=== PATIENT | female | born 1990 | race American Indian/Alaskan Native ===

== ENCOUNTER 2017-08-16 16:54 | Emergency (ER) | payer MEDICARE, OTHER ==
[2017-08-16 17:04] VITALS: BMI 27.4
[2017-08-16 17:06] VITALS: BP 131/84; PULSE 84; RESP 18; TEMP 98.6; O2SAT 97
[2017-08-16] MEDS ORDERED: Acetaminophen-Codeine 300/30 mg Tab PO STA (17:29)
--- NOTE | 2017-08-16 18:03 | C.PDOC ---
History Of Present Illness 27 y/o female presents to the emergency room complaining of 3-4 months of left hip pain, worse with movement. Pain improves when lying still. No injury or trauma. No fever, chills, or redness. Patient denies taking any medications for pain relief. No nausea, vomiting, or abdominal pain. Patient also complains of a sore throat for 2 days. Time Seen by Provider: 08/16/17 17:14 Chief Complaint (Nursing): Lower Extremity Problem/Injury History Per: Patient History/Exam Limitations: no limitations Onset/Duration Of Symptoms: Days (x 3-4 months) Current Symptoms Are (Timing): Still Present Past Medical History Reviewed: Historical Data, Nursing Documentation, Vital Signs Vital Signs: Last Vital Signs Temp 98.6 F 08/16/17 17:04 Pulse 84 08/16/17 17:04 Resp 18 08/16/17 18:59 BP 131/84 08/16/17 17:04 Pulse Ox 97 08/16/17 18:35 - Medical History PMH: No Chronic Diseases Surgical History: Family History: States: No Known Family Hx - Social History Hx Tobacco Use: No Hx Alcohol Use: Yes (social) Hx Substance Use: No - Immunization History Hx Tetanus Toxoid Vaccination: No Hx Influenza Vaccination: No Hx Pneumococcal Vaccination: No Review Of Systems ENT: Positive for: Throat Pain Musculoskeletal: Positive for: Other (Hip Pain) Physical Exam - Physical Exam Appears: Non-toxic, No Acute Distress Skin: Normal Color, Warm, Dry Head: Atraumatic, Normacephalic Eye(s): bilateral: Normal Inspection, PERRL, EOMI Nose: Normal Oral Mucosa: Moist Throat: Erythema (Tonsillar), No Exudate Neck: Normal ROM, Supple Chest: Symmetrical Cardiovascular: Rhythm Regular Respiratory: Normal Breath Sounds, No Accessory Muscle Use Back: Normal Inspection, No CVA Tenderness, No Decreased ROM, No Muscle Spasm, No Straight Leg Raising Extremity: Normal ROM (with full ROM of the left hip), Tenderness (to left anterior hip), No Deformity, No Swelling (cellulitic process, or adenopathy), Other (Neurovascularly intact) Neurological/Psych: Oriented x3, Normal Speech, Normal Motor, Normal Sensation ED Course And Treatment O2 Sat by Pulse Oximetry: 97 (RA) Pulse Ox Interpretation: Normal Medical Decision Making Medical Decision Making: Initial Impression: Viral pharyngitis, Hip pain Patient given Tylenol with codeine for pain. Ordered x-ray of left hip/pelvis. X-ray, reviewed by me, is normal. Patient will be discharged home with Tramadol. Advised to follow up with primary doctor in 1-2 days. Disposition Counseled Patient/Family Regarding: Studies Performed, Diagnosis, Need For Followup, Rx Given - Disposition Disposition: HOME/ ROUTINE Disposition Time: 18:02 Condition: STABLE Additional Instructions: follow up with medical clinic in 2 days call to make an appointment take medications as prescribed return to ER if symptoms worsens or progress Prescriptions: traMADol [Ultram] 50 mg PO TID PRN #10 tab PRN Reason: Pain, Moderate (4-7) Instructions: Viral Pharyngitis, Hip Pain Forms: [facility] (Greenlandic), General Discharge Instructions - POA Present On Arrival: None - Clinical Impression Clinical Impression: Joint pain, Viral pharyngitis - Scribe Statement The provider has reviewed the documentation as recorded by the Scribe (Haven Seymour) Provider Attestation: All medical record entries made by the Scribe were at my direction and personally dictated by me. I have reviewed the chart and agree that the record accurately reflects my personal performance of the history, physical exam, medical decision making, and the department course for this patient. I have also personally directed, reviewed, and agree with the discharge instructions and disposition.
[2017-08-16] MEDS ORDERED: Acetaminophen-Codeine 300/30 mg Tab PO ONE (18:29)
--- NOTE | 2017-08-16 18:49 | RAD ---
PROCEDURE: Left Hip X-ray Radiographs. HISTORY: pain COMPARISON: None. FINDINGS: BONES: Normal. No fracture. JOINTS: Normal. SOFT TISSUES: Normal. OTHER FINDINGS: None. IMPRESSION: Normal left hip radiographs.
== END 2017-08-16 18:59 | disposition home or self-care (01) ==
LOC: C.ER 16:54
DX: M25.552 Pain in left hip (principal); J02.8 Acute pharyngitis due to other specified organisms